=== PATIENT | male | born 1965 | race African-American/Black ===

== ENCOUNTER 2017-05-10 14:25 | Emergency (ER) | payer SELFPAY ==
[~2017-05-10] VITALS: Ht 177.8 cm; Wt 90.0 kg
[2017-05-10] MEDS: SODIUM CHLORIDE 0.9% 1,000 ML IV ONE (15:14)
[2017-05-10 15:25] LABS: BASOPHILS % 0.6 % (0.0-2.0); EOSINOPHILS % 0.3 % (0.0-5.0); HEMOGLOBIN. 15.5 g/dL (14.0-18.0); LYMPHOCYTES % 23.8 % (20.0-50.0); MEAN CORPUSCULAR HEMOGLOBIN 28.9 pg (28.0-32.0); MEAN CORPUSCULAR VOLUME 82.1 fL (80.0-94.0); MONOCYTES % 5.6 % (2.0-8.0); NEUTROPHILS % 69.7 % (40.0-76.0); PLATELET 308 x1000/uL (130-400); RED BLOOD CELL COUNT 5.35 mill/uL (4.7-6.1); RED CELL DISTRIBUTION WIDTH 14.6 % (11.6-14.6)
[2017-05-10] MEDS: MORPHINE SULFATE 4 MG/ML CPJ (NOT FOR IM USE) IV STA (15:25)
[2017-05-10] MEDS: ONDANSETRON HCL 4MG/2ML VIAL IV STA (15:25)
[2017-05-10] MEDS ORDERED: MORPHINE SULFATE 2 MG/ML CPJ (NOT FOR IM USE) IV ONE (15:27)
[2017-05-10 15:31] LABS: CHLORIDE 105 mEq/L (98-107)
[2017-05-10 15:35] LABS: CARBON DIOXIDE 25 mEq/L (21-32)
[2017-05-10 15:53] LABS: PARTIAL THROMBOPLASTIN TIME 23.7 sec (23.4-31.0)
[2017-05-10] MEDS ORDERED: IOHEXOL-300 100 ML BOTTLE ONE (16:47)
[2017-05-10 19:17] VITALS: BP 190/90
== END 2017-05-10 19:18 | disposition home or self-care (01) ==
LOC: ER 14:36
DX: S20.219A Contusion of unspecified front wall of thorax, initial encounter (principal); R41.82 Altered mental status, unspecified; R06.02 Shortness of breath; S80.01XA Contusion of right knee, initial encounter; R94.31 Abnormal electrocardiogram [ECG] [EKG]; R79.9 Abnormal finding of blood chemistry, unspecified; D72.829 Elevated white blood cell count, unspecified; W11.XXXA Fall on and from ladder, initial encounter; Y93.89 Activity, other specified; Y92.89 Other specified places as the place of occurrence of the external cause
CPT/HCPCS: 36415; 70450; 71010; 71260; 72125; 72170; 73560; 80053; 84484; 85025; 85610; 85730; 86850; 86900; 86901; 93005; 96361; 96374; 96375; 99285; J2270; J2405; J7030; Q9967; Z7610